=== PATIENT | male | born 1965 | race Caucasian/White ===

== ENCOUNTER → 2022-07-28 07:46 | Outpatient (CLI) | payer OTHER, SELFPAY ==
--- NOTE | 2022-07-28 07:53 | DI.RAD.S_ITS ---
PROCEDURE: XR LUMBAR SPINE 2-3V INDICATIONS: CERVICAL/LUMBAR PAIN TECHNIQUE: 3 views of the lumbar spine were acquired. COMPARISON: None. FINDINGS: Bones: 5 [id number] vertebrae are present. There is normal bony alignment. No vertebral body compression fractures. No suspicious bony lesions. Disc space narrowing and hypertrophic facet joints noted in the lower lumbar spine Soft tissues: Overlying bowel gas pattern is normal. No suspicious soft tissue calcifications. IMPRESSION: Degenerative disc disease and arthropathy in the lower lumbar spine Approved by: Raffi Pederson M.D. on 07/28/2022 at 13:37
--- NOTE | 2022-07-28 07:53 | DI.RAD.S_ITS ---
PROCEDURE: XR CERVICAL SPINE 2V OR 3V INDICATIONS: CERVICAL/LUMBAR PAIN TECHNIQUE: 3 view(s) of the cervical spine were acquired. COMPARISON: None. FINDINGS: Bones: No fractures or dislocations to the T1 level. The lateral masses of C1 appear intact on the odontoid view. No suspicious bony lesions. Disc space narrowing present in the mid cervical spine. Craniovertebral relationships normal Soft tissues: No prevertebral soft tissue swelling. IMPRESSION: Midcervical spine degenerative disc disease Approved by: Raffi Pederson M.D. on 07/28/2022 at 11:51
== END ==
PROVIDERS: Referring Provider Internal Medicine Cardiovascular Disease; Visit Provider Internal Medicine Cardiovascular Disease
DX: M50.320 Other cervical disc degeneration, mid-cervical region, unspecified level (principal); M47.816 Spondylosis without myelopathy or radiculopathy, lumbar region; M51.36 Other intervertebral disc degeneration, lumbar region; M54.50 Low back pain, unspecified
CPT/HCPCS: 72040; 72100